=== PATIENT | female | born 1945 | race Caucasian/White ===

== ENCOUNTER 2022-03-12 13:22 | Outpatient (CLI) | payer BC, MEDICARE | END 2022-03-12 13:23 | disposition home or self-care (01) | LOC: TBSIIMAG 13:22 | PROVIDERS: ATTEND Neurological Surgery | DX: M47.816 Spondylosis without myelopathy or radiculopathy, lumbar region (principal); M43.8X6 Other specified deforming dorsopathies, lumbar region | CPT/HCPCS: 72100 ==